=== PATIENT | male | born 1965 | race African-American/Black ===

== ENCOUNTER 2017-07-27 15:41 | Emergency (ER) | payer OTHER ==
[2017-07-27] MEDS: MECLIZINE 12.5 MG TAB PO (17:04)
== END 2017-07-27 19:48 | disposition home or self-care (01) ==
LOC: E/R 15:41
DX: H81.10 Benign paroxysmal vertigo, unspecified ear (principal); I10 Essential (primary) hypertension; E11.9 Type 2 diabetes mellitus without complications
CPT/HCPCS: 70450; 99284-25